=== PATIENT | female | born 1980 | race Hispanic/Latino ===

== ENCOUNTER 2021-03-27 19:13 | Emergency (ER) | payer OTHER ==
--- OUTSIDE RECORDS SUMMARY | 2021-03-27 19:16 | XMS REPORT | Continuity of Care Document ---
:[address] [facility] t Address [address] [place] [address] [address] [place] [address] Care Team Providers Name Role Phone Cristofer ALARCON Primary Care Physician Unavailable Deepti AVENDANO Attending Clinician Unavailable Deepti Moreau Attending Clinician Payers Payer Name Policy Type Policy Number Effective Date Expiration Date S bry [id number] 2017 00:00:00 Problems Condition Condition Condition Status Onset Resolution Last Treating Co mments Source Name Details Category Date Date Treatment Clinician Date Overweight Overweight Disease Active Overview : Univers 5-25 Formattin ity of 00:00: g of this [place] 00 note Medical might be Branch different from the original. ICD10 Diagnosis Term Catering Assistant Utility Allergies, Adverse Reactions, Alerts Allergy Allergy Status Severity Reaction(s) Onset Inactive Treating Comm ents Source Name Type Date Date Clinician NO KNOWN Drug Active Univers ALLERGIE Class ity of [facility] Social History Social Habit Start Date Stop Date Quantity Comments Source Exposure to Not sure University SARS-CoV-[address] [facility] (event) Branch Alcohol intake 2021-01-16 2021-01-16 Current [place] of 00:00:00 00:00:00 non-drinker of [facility] alcohol Branch (finding) Tobacco use and 2014-08-04 2014-08-04 Never used Universit y of exposure 00:00:00 00:00:00 [facility] Sex Ass[birth year] [facility] 00:00:00 00:00:00 [facility] Smoking Status Start Date Stop Date Source Never smoker [facility] Medications Ordered Filled Start Stop Current Ordering Indication Dosage Frequency Signature Comments Components Source Medication Medication Date Date Medication? Clinician (SIG) Name Name liz 2020-03 Yes [id number] 1{tbl} Take 1 Univers ne-e.estrad -03 tablet by ity of ioL-iron 00:00: mouth [place] (BLISOVI FE 00 daily. Medica l 1.5/30, Branch 28,) 1.5 mg-30 mcg (21)/75 mg (7) per tablet BLISOVI FE 2020-03- No [id number] TAKE 1 U nivers 1.5/30, 28, 0-22 01-16 TABLET BY it y of 1.5 mg-30 00:00: 00:00 MOUTH [place] mcg (21)/75 00 :00 EVERY DAY Med ical mg (7) per Branch tablet Immunizations Ordered Filled Immunization Date Status Comments Sour e Immunization Name Name TDAP 2010-09-25 Completed University 00:00:00 [facility] Rubella 2006-04-27 Completed University 00:00:00 [facility] Vital Signs Vital Name Observation Time Observation Value Comments Source Systolic blood 2021-01-16 13:32:00 136 mm[Hg] Univer sity of pressure [facility] Diastolic blood 2021-01-16 13:32:00 66 mm[Hg] [facility] rate 2021-01-16 13:32:00 86 /min [facility] Body temperature 2021-01-16 13:32:00 35.61 Yuki [facility] Respiratory rate 2021-01-16 13:32:00 18 /min [facility] Body height 2021-01-16 13:32:[address] [facility] Body weight 2021-01-16 13:32:[address] [facility] BMI 2021-01-16 13:32:00 24.04 kg/m2 [facility] Procedures This patient has no known procedures. 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
[2021-03-27 20:11] LABS: Absolute Lymphocytes (CBC) 1.6 K/uL (0.7-4.9); Hematocrit 34.2 % (36.0-45.0); Lymphocytes % 28.6 % (15.3-44.8); MPV 7.1 fL (7.6-11.3); RBC Red Blood Cell Count 3.81 M/uL (3.86-4.86)
[2021-03-27 20:37] LABS: Potassium 3.5 mmol/L (3.5-5.1)
--- NOTE | 2021-03-27 21:11 | EDPHYS ---
Physician Documentation [facility] Name: Joy Stewart Age: 40 yrs Sex: Female : 1980 Arrival Date: 03/27/2021 Time: 19:20 Bed 13 Private MD: ED Physician Williams Weir HPI: 03/27 23:30 This 40 yrs old Female presents to ER via EMS with complaints of near syncope. kb 23:30 The patient has experienced near-syncope, felt faint. Onset: The symptoms/episode kb began/occurred just prior to arrival. Duration: This was a single episode. Context: the episode(s) was witnessed, by family, occurred at home, occurred while the patient was standing, Just prior to the episode the patient experienced no apparent symptoms. Associated injury: The patient did not suffer any apparent associated injury. Associated signs and symptoms: The patient has no apparent associated signs or symptoms. Current symptoms: Currently, the patient is not experiencing any symptoms, the patient feels back to baseline, no decreased level of consciousness, no confusion, no dysphasia, no headache, no paralysis, no visual changes. The patient has not experienced similar symptoms in the past. The patient has not recently seen a physician. Pt states she gave blood today and when she took a hot shower she felt like she was going to pass out. States she did not pass out and feels fine now, but her family member wanted her to get checked out. 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 - Social history:: Smoking status: Patient denies any tobacco usage or history of. ROS: 21:54 Constitutional: Negative for fever, chills, and weight loss. kb 21:54 Neuro: Positive for near syncope. 21:54 All other systems are negative. Exam: 21:54 Constitutional: This is a well developed, well nourished patient who is awake, alert, kb and in no acute distress. Head/Face: Normocephalic, atraumatic. ENT: Moist Mucous membranes Cardiovascular: Regular rate and rhythm with a normal S1 and S2. No gallops, murmurs, or rubs. No pulse deficits. Respiratory: Respirations even and unlabored. No increased work of breathing. Talking in full sentences Skin: Warm, dry with normal turgor. Normal color. MS/ Extremity: Pulses equal, no cyanosis. Neurovascular intact. Full, normal range of motion. Neuro: Awake and alert, GCS 15, oriented to person, place, time, and situation. Moves all extremities. Normal gait. Psych: Awake, alert, with orientation to person, place and time. Behavior, mood, and affect are within normal limits. Vital Signs: 19:10 BP 112 / 57; Pulse 60; Resp 14; Temp 98.1; Pulse Ox 95% ; sv1 19:50 BP 120 / 71 Sitting; Pulse 65; sv1 19:50 BP 104 / 70 Standing; Pulse 73; sv1 20:08 BP 108 / 66 Supine; Pulse 63; sv1 21:53 BP 99 / 59; Pulse 69; Resp 14; Temp 98.8; Pulse Ox 95% ; Pain 0/10; sv1 MDM: 19:22 Patient medically screened. kb 21:54 Data reviewed: vital signs, nurses notes. Data interpreted: Pulse oximetry: on room air kb is 95 %. Interpretation: normal. Counseling: I had a detailed discussion with the patient and/or guardian regarding: the historical points, exam findings, and any diagnostic results supporting the discharge/admit diagnosis, lab results, the need for outpatient follow up, a family practitioner, to return to the emergency department if symptoms worsen or persist or if there are any questions or concerns that arise at home. 03/27 19:23 Order name: CBC with Diff; Complete Time: 20:14 kb 03/27 19:23 Order name: Basic Metabolic Panel; Complete Time: 20:40 kb 03/27 19:23 Order name: Orthostatics; Complete Time: 20:02 kb 03/27 18:23 Order name: IV Start; Complete Time: 20:01 kb 03/27 19:23 Order name: EKG; Complete Time: 19:23 kb 03/27 19:23 Order name: EKG - Nurse/Tech; Complete Time: 20:01 kb Administered Medications: No medications were administered Disposition: 03/28 08:02 Co-signature as Attending Physician, Williams Weir MD I agree with the assessment and sp3 plan of care. Disposition Summary: 03/27/21 21:10 Discharge Ordered Location: Home kb Condition: Stable kb Diagnosis - Syncope Near kb Followup: kb - With: Emergency Department - When: As needed - Reason: Worsening of condition Followup: kb - With: Private Physician - When: 2 - 3 days - Reason: Recheck today's complaints, Continuance of care, Re-evaluation by your physician Discharge Instructions: - Discharge Summary Sheet kb - Near-Syncope, [id number] kb Forms: - Medication Reconciliation Form kb - Thank You Letter kb - Antibiotic Education kb - Prescription Opioid Use kb Signatures: Dispatcher [employer] EDMS Irina Levine, LEADERSHIP PROGRAM ASSOCIATE-C LEADERSHIP PROGRAM ASSOCIATE-Demetriob Williams Weir MD MD sp3 Ayden Lockett RN RN sv1
--- NOTE | 2021-03-27 21:11 | ER ---
Nurse's Notes [facility] Name: Joy Stewart Age: 40 yrs Sex: Female : 1980 Arrival Date: 03/27/2021 Time: 19:20 Bed 13 Private MD: Diagnosis: Syncope Near Presentation: 03/27 20:02 Chief complaint: Patient states: Dizziness-. Coronavirus screen: Client denies travel sv1 out of the [place] in the last 14 days. The client denies any previous COVID testing. Ebola Screen: No symptoms or risks identified at this time. Initial Sepsis Screen: Does the patient meet any 2 criteria? No. Patient's initial sepsis screen is negative. Risk Assessment: Do you want to hurt yourself or someone else? Patient reports no desire to harm self or others. Onset of symptoms was March 27, 2021. 20:02 Method Of Arrival: EMS: [facility] sv1 20:02 Acuity: ZACHARY 3 sv1 21:58 Initial Sepsis Screen: Does the patient have a suspected source of infection? No. sv1 Patient's initial sepsis screen is negative. Triage Assessment: 20:02 General: Appears in no apparent distress. slender, well groomed, well developed, sv1 Behavior is calm, cooperative. 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 - Social history:: Smoking status: Patient denies any tobacco usage or history of. Screenin:43 Abuse screen: Denies threats or abuse. Nutritional screening: No deficits noted. sv1 Tuberculosis screening: No symptoms or risk factors identified. Fall Risk None identified. Assessment: 19:42 Reassessment: CC of dizziness the patient donated blood and did not drink enough sv1 fluids. She then took a hot shower and became very dikky. . Pain: Denies pain. 21:58 Reassessment: Cleared for discharge to home by the provider.. sv1 Vital Signs: 19:10 BP 112 / 57; Pulse 60; Resp 14; Temp 98.1; Pulse Ox 95% ; sv1 19:50 BP 120 / 71 Sitting; Pulse 65; sv1 19:50 BP 104 / 70 Standing; Pulse 73; sv1 20:08 BP 108 / 66 Supine; Pulse 63; sv1 21:53 BP 99 / 59; Pulse 69; Resp 14; Temp 98.8; Pulse Ox 95% ; Pain 0/10; sv1 ED Course: 19:20 Patient arrived in ED. mw2 19:21 Williams Weir MD is Attending Physician. sp3 19:22 Irina Levine FNP-C [facility]. kb 19:22 Williams Weir MD is Attending Physician. kb 19:41 Ayden Lockett, RN is Primary Nurse. sv1 19:43 Patient has correct armband on for positive identification. Bed in low position. Call sv1 light in reach. Side rails up X 1. 19:43 No provider procedures requiring assistance completed. Maintain EMS IV. Dressing sv1 intact. Good blood return noted. Site clean \T\ dry. 20:01 Basic Metabolic Panel Sent. sv1 20:02 Arm band placed on right wrist. sv1 20:02 CBC with Diff Sent. sv1 20:04 Triage completed. sv1 21:58 IV discontinued. sv1 Administered Medications: No medications were administered Outcome: 21:10 Discharge ordered by . kb 21:53 Discharged to home ambulatory. sv1 21:53 Condition: good 21:53 Discharge instructions given to patient. 21:59 Patient left the ED. sv1 Signatures: Irina Levine FNP-C PLANNING AND ANALYSIS MANAGER-Griffin Zelaya mw2 Williams Weir MD MD sp3 Ayden Lockett, RN RN sv1
[2021-03-27 22:49] VITALS: BP 99/59; TEMP 98.8; O2SAT 95
== END 2021-03-27 21:59 | disposition home or self-care (01) ==
LOC: ER 19:13
DX: R55 Syncope and collapse (principal)
CPT/HCPCS: 36415; 80048; 85025; 93005; 99283